=== PATIENT | male | born 1940 | race Caucasian/White ===

== ENCOUNTER 2020-05-28 08:43 | Outpatient (RCR) | payer MEDICARE, SELFPAY ==
[2020-05-28] MEDS: COVID-19 VACC, MRNA(PFIZER)/PF 30 MCG/0.3 ML SYRINGE IM (13:24)
[2020-06-18] MEDS: COVID-19 VACC, MRNA(PFIZER)/PF 30 MCG/0.3 ML SYRINGE IM (13:09)
== END 2020-08-25 23:59 ==
LOC: IMMUN 08:43
PROVIDERS: PCP Family Medicine; Visit Provider Family Medicine
DX: Z23 Encounter for immunization (principal)
CPT/HCPCS: 0001A; 0002A; 91300